=== PATIENT | male | born 1995 | race Hispanic/Latino ===

== ENCOUNTER 2017-05-16 10:33 | Emergency (ER) | payer OTHER, SELFPAY ==
[2017-05-16] MEDS ORDERED: Lidocaine 1% PF 5 ML VIAL ONE (11:31)
[2017-05-16] MEDS ORDERED: Azithromycin 250 MG TAB ONE (11:31)
[2017-05-16] MEDS ORDERED: cefTRIAXone\\ROCEPHIN 250 MG VIAL ONE (11:31)
[2017-05-16 11:56] LABS: Bilirubin Negative (Negative); Blood, Urine Small (Negative); Clarity CLOUDY (Clear); Glucose, Urine (Dipstick) Negative (Negative); Leukocyte Large (Negative); Nitrite Negative (Negative); Protein, Urine (Dipstick) Trace mg/dL (Neg-Trace); Specific Gravity, Urine 1.022 (1.002-1.036); Urobilinogen 0.2 mg/dL (0.2-1.0); pH, Urine 6.5 (5.0-9.0)
[2017-05-16 11:58] LABS: Bacteria/HPF 1+ HPF (None Seen); Hyaline Casts/LPF 0-3 HYALINE CAST LPF (0-3 Hyaline); Pathc Cast-AUWi Flag 0.81 (0-2.49)
[2017-05-16 12:01] LABS: Yeast-AUWi Flag 35.2 (0-25.0)
[2017-05-16 12:20] LABS: Yeast-All Forms None Seen HPF (None Seen)
== END 2017-05-16 12:00 | disposition home or self-care (01) ==
LOC: ERS 10:33
DX: J11.1 Influenza due to unidentified influenza virus with other respiratory manifestations (principal); N34.2 Other urethritis
CPT/HCPCS: 81003; 81015; 87491; 87591; 96372; J0696; J2001

== ENCOUNTER 2019-01-25 05:18 | Emergency (ER) | payer SELFPAY ==
[2019-01-25] MEDS ORDERED: Adacel (T-DAP) 0.5 ML SYRINGE ONE (05:22)
[2019-01-25] MEDS ORDERED: Bacitracin 1 PK ONE (05:25)
== END 2019-01-25 05:32 | disposition home or self-care (01) ==
LOC: ERS 05:18
DX: S60.512A Abrasion of left hand, initial encounter (principal); F41.0 Panic disorder [episodic paroxysmal anxiety]; Z23 Encounter for immunization; W26.8XXA Contact with other sharp object(s), not elsewhere classified, initial encounter
CPT/HCPCS: 90471; 90715

== ENCOUNTER 2025-01-31 23:30 | Emergency (ER) | payer SELFPAY | END 2025-02-01 00:49 | LOC: ERS 23:30 | DX: Z02.89 Encounter for other administrative examinations (principal); V43.52XA Car driver injured in collision with other type car in traffic accident, initial encounter | CPT/HCPCS: 99282 ==